=== PATIENT | female | born 1980 | race Caucasian/White ===

== ENCOUNTER 2020-01-18 01:37 | Emergency (ER) | payer OTHER ==
[~2020-01-18] VITALS: Ht 175.3 cm; Wt 54.4 kg
[~2020-01-18 01:37] MED LIST: MIRALAX17 GM PO
[2020-01-18] MEDS ORDERED: LISINOPRIL2.5 MG PO (01:59)
[2020-01-18] MEDS ORDERED: ADDERALL 20 MG20 MG PO (02:01)
[2020-01-18] MEDS ORDERED: XANAX 0.25 MG0.25 MG PO (02:02)
[2020-01-18] MEDS ORDERED: MYDAYIS ER 3737.5 MG PO (02:06)
[2020-01-18] MEDS ORDERED: LIDOCAINE VISC100 ML SW&SWALLOW (02:37)
[2020-01-18 02:52] VITALS: BP 155/105
== END 2020-01-18 02:55 | disposition home or self-care (01) ==
LOC: M.ERS 01:37
DX: K12.1 Other forms of stomatitis (principal); I10 Essential (primary) hypertension; F41.9 Anxiety disorder, unspecified; Z90.710 Acquired absence of both cervix and uterus